=== PATIENT | female | born 1965 | race Caucasian/White ===

== ENCOUNTER → 2024-08-25 16:06 | Outpatient (REF) | payer OTHER, SELFPAY | LOC: WDC 16:06 | PROVIDERS: ATTENDING PHYSICIAN Obstetrics & Gynecology Gynecology; FAMILY PHYSICIAN Physician Assistant Medical | DX: Z12.31 Encounter for screening mammogram for malignant neoplasm of breast (principal) | CPT/HCPCS: 77063; 77067 ==

== ENCOUNTER → 2025-08-21 10:53 | Outpatient (REF) | payer OTHER, SELFPAY | LOC: RAD 10:53 | PROVIDERS: ATTENDING PHYSICIAN Physician Assistant Medical | DX: Z13.6 Encounter for screening for cardiovascular disorders (principal); E78.2 Mixed hyperlipidemia | CPT/HCPCS: 75571 ==

== ENCOUNTER → 2025-08-30 15:31 | Outpatient (REF) | payer OTHER, SELFPAY | LOC: WDC 15:31 | PROVIDERS: ATTENDING PHYSICIAN Obstetrics & Gynecology Gynecology; FAMILY PHYSICIAN Physician Assistant Medical | DX: Z12.31 Encounter for screening mammogram for malignant neoplasm of breast (principal) | CPT/HCPCS: 77063; 77067 ==